=== PATIENT | male | born 1955 | race Caucasian/White ===

== ENCOUNTER 2020-03-18 12:12 | Emergency (ER) | payer MEDICARE ==
[2020-03-18] MEDS ORDERED: Sodium Chloride 0.9% 10 ML Syringe FLUSH PRN (12:13)
[2020-03-18 12:46] LABS: PTT,PARTIAL THROMBOPLSTIN TIME 26.1 SEC (25.6-32.8)
--- NOTE | 2020-03-18 12:47 | CT ---
[id number] CT/CT Head WO IV EXAM: CT Head WO IV CLINICAL DATA: ALTERED LOSS OF CONSCIOUSNESS. COMPARISON STUDY: None FINDINGS: Acute on chronic subdural hematoma. Collection measures approximately 10 mm in maximum thickness. Mass effect on the left renal hemisphere results in partial effacement of the left lateral ventricle and rightward shift at the septum pellucidum estimated at [address] evidence of acute ischemia at this time. Small left frontal scalp contusion. No calvarial fracture. Paranasal sinusitis, including acute appearing right maxillary sinus with opacification of the right maxillary infundibula. Mastoid air cells middle ear cavities are clear. IMPRESSION: Acute on chronic left subdural hematoma with rightward shift at the septum pellucidum. Results relayed to Lc Salvador at time of dictation. Sumit Bassett MD 03/18/20 1521 Thank you for allowing us to participate in the care of your patient.
[2020-03-18 12:53] LABS: CHLORIDE,CL 96 mmol/L (98-107); SODIUM,NA 134 mmol/L (136-145)
[2020-03-18 12:55] LABS: ANION GAP 15.4 mmol/L (10-20)
--- NOTE | 2020-03-18 13:08 | EDM.PDOC ---
ED HPI GENERAL MEDICAL PROBLEM - General Stated Complaint: STROKE CODE Time Seen by Provider: 03/18/20 12:13 Source of Information: Reports: Family History Limitations: Reports: Altered Mental Status - History of Present Illness INITIAL COMMENTS - FREE TEXT/NARRATIVE: Patient comes emergency department today with family with concerns of acute confusion. The majority of the HPI is obtained from the family as the patient has expressive aphasia and pleasantly confused. According to the girlfriend the patient drinks on a daily basis. On 03/12/2020 the patient was intoxicated when he fell striking the left side of his head on the ground. The patient went to bed at that time. Shortly thereafter they did not identify any concerns or neurological changes until the last 2 days. The last 2 days he has not been making sense when he talks he has been more confused and he does not follow commands. Rest of the HPI is unobtainable from the patient as he is pleasantly confused does not answer questions appropriately and has expressive aphasia. When asked questions and the patient's response to every question is "okay whatever". ED ROS GENERAL - Review of Systems Review Of Systems: Unable To Obtain Reason Not Obtained: confusion ED EXAM, NEURO - Physical Exam Exam: See Below Text/Narrative:: This patient is alert. He is smiling happy interactive. He does not follow commands. He does move all extremities strong and equal spontaneously. When asked questions his response everything is "okay what ever". Exam Limited By: Altered Mental Status General Appearance: Alert Eye Exam: Right Eye: Vision Changes (fake glass eye), Left Eye: EOMI, PERRL (4mm) Ears: Normal External Exam Nose: Normal Inspection Throat/Mouth: Normal Inspection Head Exam: No: Atraumatic (There is a small contusion to the left upper forehead with a scabbed over area. No crepitus or subcutaneous emphyzema. The rest of the head and scalp is atraumatic.), Facial Swelling, Facial Tenderness, Sinus Tenderness Neck: Normal Inspection, Supple, Non-Tender, Full Range of Motion Respiratory/Chest: No Respiratory Distress, Lungs Clear, Normal Breath Sounds, No Accessory Muscle Use, Chest Non-Tender Cardiovascular: Normal Peripheral Pulses, Regular Rate, Rhythm GI/Abdominal: Normal Bowel Sounds, Soft, Non-Tender (Male) Exam: Deferred Rectal (Males) Exam: Deferred Neurological: Alert, Normal Mood/Affect (He is happy joking smiling interactive), Other (Moves all extremities strong equal spontaneously. Really the only focal neurological deficit identified is the expressive aphasia.). No: CN II-XII Intact (Unable to assess cranial nerves as the patient does not follow commands.), Oriented x 3 Back Exam: Normal Inspection Extremities: Normal Inspection, Normal Range of Motion, Normal Capillary Refill Skin Exam: Warm, Dry, Intact, Normal Color, No Rash EKG INTERPRETATION EKG Date: 03/18/20 Time: 12:16 Rhythm: NSR Rate (Beats/Min): 82 [place]: Normal P-Wave: Present QRS: Normal ST-T: Normal QT: Normal Comparison: NA - No Prior EKG Course - Orders/Labs/Meds Orders: Active Orders 24 hr Category Date Time Status EKG Documentation Completion [RC] STAT Care 03/18/20 12:13 Active DRUG SCREEN, URINE [URCHEM] Stat Lab 03/18/20 12:34 Ordered UA RFX MARIA L AND CULT IF INDIC [URIN] Stat Lab 03/18/20 12:14 Ordered Sodium Chloride 0.9% [Saline Flush] Med 03/18/20 12:13 Active 10 ml FLUSH ASDIRECTED PRN Peripheral IV Insertion Adult [OM.PC] Stat Oth 03/18/20 12:13 Ordered Medication Orders Sodium Chloride (Saline Flush) 10 ml FLUSH ASDIRECTED PRN PRN Reason: Keep Vein Open Labs: Laboratory Tests 03/18/20 03/18/20 03/18/20 Range/Units 12:25 12:25 12:25 WBC 10.9 H (4.0-10.0) x10^3/uL RBC 3.91 L (4.5-6.0) x10^6/uL Hgb 12.7 L (14.0-18.0) g/dL Hct 35.7 L (40.0-52.0) % MCV 91.3 (78.0-93.0) fL MCH 32.5 H (26.0-32.0) pg MCHC 35.6 (32.0-36.0) g/dL RDW Coeff of Reji 11.2 (10.0-15.0) % Plt Count 388 (130-400) x10^3/uL Neut % (Auto) 81.5 H (50.0-80.0) % Lymph % (Auto) 11.1 L (25.0-50.0) % [place] % (Auto) 6.9 (2.0-11.0) % Eos % (Auto) 0.3 (0.0-4.0) % Baso % (Auto) 0.2 (0.2-1.2) % PT 10.1 (9.5-12.3) SEC INR 0.9 L (2.0-3.5) APTT 26.1 (25.6-32.8) SEC Sodium 134 L (136-145) mmol/L Potassium 3.4 L (3.5-5.1) mmol/L Chloride 96 L (98-107) mmol/L Carbon Dioxide 26 (21-32) mmol/L Anion Gap 15.4 (10-20) mmol/L BUN 12 (7-18) mg/dL Creatinine 0.9 (0.70-1.30) mg/dL Est Cr Clr Drug Dosing TNP Estimated GFR (MDRD) > 60 Glucose 154 H (74-106) mg/dL Calcium 9.4 (8.5-10.1) mg/dL Corrected Calcium 9.48 (8.5-10.1) mg/dL Magnesium (1.8-2.4) mg/dL Total Bilirubin 0.7 (0.2-1.0) mg/dL AST 19 (15-37) U/L ALT 28 (16-63) U/L Alkaline Phosphatase 100 (46-116) U/L POC Troponin I (0.00-0.08) ng/mL Total Protein 7.9 (6.4-8.2) g/dL Albumin 3.9 (3.4-5.0) g/dL Globulin 4.0 Albumin/Globulin Ratio 0.98 Ethyl Alcohol < 3 (0-3) mg/dL SARS CoV-2 RNA Rapid EDGAR (NEGATIVE) 03/18/20 03/18/20 03/18/20 Range/Units 12:25 12:25 12:34 WBC (4.0-10.0) x10^3/uL RBC (4.5-6.0) x10^6/uL Hgb (14.0-18.0) g/dL Hct (40.0-52.0) % MCV (78.0-93.0) fL MCH (26.0-32.0) pg MCHC (32.0-36.0) g/dL RDW Coeff of Reji (10.0-15.0) % Plt Count (130-400) x10^3/uL Neut % (Auto) (50.0-80.0) % Lymph % (Auto) (25.0-50.0) % [place] % (Auto) (2.0-11.0) % Eos % (Auto) (0.0-4.0) % Baso % (Auto) (0.2-1.2) % PT (9.5-12.3) SEC INR (2.0-3.5) APTT (25.6-32.8) SEC Sodium (136-145) mmol/L Potassium (3.5-5.1) mmol/L Chloride (98-107) mmol/L Carbon Dioxide (21-32) mmol/L Anion Gap (10-20) mmol/L BUN (7-18) mg/dL Creatinine (0.70-1.30) mg/dL Est Cr Clr Drug Dosing Estimated GFR (MDRD) Glucose (74-106) mg/dL Calcium (8.5-10.1) mg/dL Corrected Calcium (8.5-10.1) mg/dL Magnesium 1.9 (1.8-2.4) mg/dL Total Bilirubin (0.2-1.0) mg/dL AST (15-37) U/L ALT (16-63) U/L Alkaline Phosphatase (46-116) U/L POC Troponin I 0.00 (0.00-0.08) ng/mL Total Protein (6.4-8.2) g/dL Albumin (3.4-5.0) g/dL Globulin Albumin/Globulin Ratio Ethyl Alcohol (0-3) mg/dL SARS CoV-2 RNA Rapid EDGAR Negative (NEGATIVE) Meds: Medications Generic Name Dose Route Start Last Admin Trade Name Freq PRN Reason Stop Dose Admin Sodium Chloride 10 ml 03/18/20 12:13 Saline Flush FLUSH ASDIRECTED PRN Keep Vein Open - Re-Assessments/Exams Free Text/Narrative Re-Assessment/Exam: 03/18/20 13:17 Upon the patient's arrival a stroke code was activated and the stroke team was available shortly thereafter. We went to the CT scanner and the quick read on the CT scan shows when reviewed extemporaneously by myself and acute on chronic subdural hematoma with some central midline shift. I did not complete a CTA head and neck due to the obvious subdural hematoma. Rather difficult to complete an NIH stroke scale as the patient does not follow commands and his expressive aphasia is so severe that he only says "okay what ev er". Reviewing his medical record through [facility] the patient is not on any anticoagulation or antiplatelet therapy. Speaking with the family he is a chronic alcoholic who stopped taking his blood pressure medication about a month ago. EKG is rather unremarkable with a sinus rhythm without any atrial fibrillation or other irregularities I called and spoke with [facility] although they do not have a bed and don't feel this is an emergency surgical need so they refused the patient. I called and spoke with Dr. Vicky Rebolledo at [facility] in [place]. HPI ER COURSE findings and concerns were relayed to him verbally over the phone. The CT scan was available as well for them at the time of communication. The ER MD accepted the patient in transfer at this time to [facility] for further care management and evaluation. I cussed the findings of the acute on chronic subdural hematoma with a midline shift with the patient as well as his at the bedside. Their questions were answered and they were comfortable with this plan. Departure - Departure Time of Disposition: 13:05 Disposition: DC/Tfer to [facility] 02 Clinical Impression: Acute on chronic intracranial subdural hematoma - Discharge Information Referrals: PCP,None [Primary Care Provider] - Forms: Interfacility Transfer MANUEL - My Orders Last 24 Hours: My Active Orders 03/18/20 12:13 EKG Documentation Completion [RC] STAT Sodium Chloride 0.9% [Saline Flush] 10 ml FLUSH ASDIRECTED PRN Peripheral IV Insertion Adult [OM.PC] Stat 03/18/20 12:14 UA RFX MARIA L AND CULT IF INDIC [URIN] Stat 03/18/20 12:34 DRUG SCREEN, URINE [URCHEM] Stat - Assessment/Plan Last 24 Hours: My Active Orders 03/18/20 12:13 EKG Documentation Completion [RC] STAT Sodium Chloride 0.9% [Saline Flush] 10 ml FLUSH ASDIRECTED PRN Peripheral IV Insertion Adult [OM.PC] Stat 03/18/20 12:14 UA RFX MARIA L AND CULT IF INDIC [URIN] Stat 03/18/20 12:34 DRUG SCREEN, URINE [URCHEM] Stat
== END 2020-03-18 14:10 | disposition short-term general hospital (02) ==
LOC: VM.ED 12:12
DX: S06.5X9A Traumatic subdural hemorrhage with loss of consciousness of unspecified duration, initial encounter (principal); S00.83XA Contusion of other part of head, initial encounter; Z20.828 Contact with and (suspected) exposure to other viral communicable diseases; W22.8XXA Striking against or struck by other objects, initial encounter
CPT/HCPCS: 70450; 80053; 80307; 83735; 84484; 85025; 85610; 85730; 99285; U0002; 82962